=== PATIENT | female | born 1960 | race Caucasian/White ===

== ENCOUNTER 2020-09-09 21:21 | Observation (INO) ==
[2020-09-09] MEDS ORDERED: Aspirin 81 MG TAB.CHEW PO ONE (21:25)
[2020-09-09 21:43] LABS: Eosinophils % 1.6 %; Mean Platelet Volume 9.1 fL (9.4-12.4)
[2020-09-09 21:45] LABS: Basophils # 0.1 K/mcL (0.0-0.2); Basophils % 0.7 %; Eosinophils # 0.1 K/mcL (0.0-0.6); Hematocrit 31.1 % (35.3-44.9); Hemoglobin 8.1 g/dL (11.5-15.4); Immature Granulocytes % 0.1 % (0-4); Lymphocytes # 2.6 K/mcL (0.6-4.6); Lymphocytes % 38.5 %; Mean Corpuscular Hemoglobin 18.5 pg (28.0-33.3); Mean Corpuscular Volume 71.2 fL (83.0-100.0); Monocytes # 0.6 K/mcL (0.0-1.3); Monocytes % 8.6 %; Platelet Count 338 K/mcL (140-400); Red Blood Count 4.37 M/mcL (3.82-4.97); Red Cell Distribution Width 17.8 % (11.5-14.5); Segmented Neutrophils % 50.5 %; White Blood Count 6.8 K/mcL (4.3-11.1)
[2020-09-09 21:46] LABS: Hypochromasia Present (Not Present); Neutrophils # 3.4 K/mcL (1.6-8.9)
[2020-09-09 21:50] LABS: INR 1.1; Prothrombin Time 12.5 Seconds (9.4-12.1)
[2020-09-09] MEDS ORDERED: Nitroglycerin 0.4 MG TAB.SUBL SL PRN (22:02)
[2020-09-09 22:08] LABS: BUN/Creatinine Ratio 14 (6-26); Blood Urea Nitrogen 11 mg/dL (8-23); Calcium 9.9 mg/dL (8.6-10.3); Carbon Dioxide 26 mEq/L (23-29); Chloride 105 mEq/L (98-107); Glucose 212 mg/dL (70-105); Osmolality,Calculated 292 (280-300); Sodium 138 mEq/L (136-145); eGFR For African Americans > 60 (> 60); eGFR For Non-African Americans > 60 (> 60)
[2020-09-09 22:09] LABS: Troponin I < 0.03 ng/mL (< 0.04)
[2020-09-09] MEDS ORDERED: Dextrose Gel 15 GM/37.5 ML TUBE PO PRN ×2 (22:57)
[2020-09-09] MEDS ORDERED: *HR* Dextrose 50 % in Water (Vial) 50 ML VIAL IVP PRN (22:57)
[2020-09-09] MEDS ORDERED: D5% in Water 1,000 ML IVC PRN (22:57)
[2020-09-09] MEDS ORDERED: Insulin DETEMIR 100 UNIT/ML X5UNITS SQ SCH (23:00)
[2020-09-10] MEDS: Insulin LISPRO 300 UNITS/3 ML VIAL SQ SCH ×5 (00:17→20:55)
[2020-09-10] MEDS: Acetaminophen 325 MG TABLET PO PRN ×3 (00:22→19:40)
[2020-09-10 01:30] LABS: Hematocrit 29.3 % (35.3-44.9); Hemoglobin 7.6 g/dL (11.5-15.4); Mean Corpuscular HGB Conc 25.9 g/dL (31.6-35.5); Mean Corpuscular Hemoglobin 18.5 pg (28.0-33.3); Mean Corpuscular Volume 71.5 fL (83.0-100.0); Mean Platelet Volume 9.1 fL (9.4-12.4); Platelet Count 329 K/mcL (140-400); Red Cell Distribution Width 17.6 % (11.5-14.5); White Blood Count 7.6 K/mcL (4.3-11.1)
[2020-09-10 01:49] LABS: BUN/Creatinine Ratio 13 (6-26); Blood Urea Nitrogen 11 mg/dL (8-23); Calcium 9.5 mg/dL (8.6-10.3); Carbon Dioxide 25 mEq/L (23-29); Chloride 106 mEq/L (98-107); Glucose 282 mg/dL (70-105); Osmolality,Calculated 298 (280-300); Potassium 3.9 mEq/L (3.5-5.1); Sodium 139 mEq/L (136-145); eGFR For African Americans > 60 (> 60); eGFR For Non-African Americans > 60 (> 60)
[2020-09-10] MEDS: *HR* Enoxaparin 40 MG/0.4 ML SYRINGE SQ SCH (05:16)
[2020-09-10 05:53] LABS: % Iron Saturation 2 % (15-50); Iron 10 mcg/dL (50-170); Transferrin 306 mg/dL (203-362)
[2020-09-10 06:14] LABS: Ferritin < 8 ng/mL (10-120)
[2020-09-10] MEDS: Iron Sucrose Complex 250 MG in 0.9 % Sodium Chloride 250 ML IVPB SCH (08:32)
[2020-09-10] MEDS ORDERED: Perflutren Lipid Microsphere 1.3 ML in 0.9 % Sodium Chloride 8.7 ML IVP PRN (08:39)
[2020-09-10] MEDS ORDERED: Aspirin 81 MG TAB.CHEW PO SCH (09:00)
[2020-09-10] MEDS ORDERED: Nitroglycerin 0.4 MG TAB.SUBL SL PRN (10:15)
[2020-09-10] MEDS: Isosorbide MONOnitrate (24 HR) 30 MG TAB.ER.24H PO SCH (15:16)
[2020-09-10] MEDS: Insulin DETEMIR 100 UNIT/ML X5UNITS SQ SCH (20:56)
[2020-09-10] MEDS ORDERED: Insulin DETEMIR 100 UNIT/ML X5UNITS SQ SCH (21:00)
[2020-09-10] MEDS ORDERED: Ibuprofen 400 MG TABLET PO ONE (21:48)
[2020-09-11] MEDS: *HR* Enoxaparin 40 MG/0.4 ML SYRINGE SQ SCH (05:31)
[2020-09-11 06:27] LABS: Hematocrit 25.9 % (35.3-44.9); Hemoglobin 6.7 g/dL (11.5-15.4); Mean Corpuscular HGB Conc 25.9 g/dL (31.6-35.5); Mean Corpuscular Hemoglobin 18.7 pg (28.0-33.3); Mean Corpuscular Volume 72.1 fL (83.0-100.0); Mean Platelet Volume 9.3 fL (9.4-12.4); Platelet Count 278 K/mcL (140-400); Red Blood Count 3.59 M/mcL (3.82-4.97); Red Cell Distribution Width 17.8 % (11.5-14.5); White Blood Count 6.4 K/mcL (4.3-11.1)
[2020-09-11 06:43] LABS: BUN/Creatinine Ratio 13 (6-26); Blood Urea Nitrogen 11 mg/dL (8-23); Calcium 8.9 mg/dL (8.6-10.3); Carbon Dioxide 27 mEq/L (23-29); Chloride 108 mEq/L (98-107); Glucose 98 mg/dL (70-105); Osmolality,Calculated 289 (280-300); Potassium 3.9 mEq/L (3.5-5.1); Sodium 140 mEq/L (136-145); eGFR For African Americans > 60 (> 60); eGFR For Non-African Americans > 60 (> 60)
[2020-09-11 07:37] LABS: Estimated Average Glucose 163 mg/dl
[2020-09-11] MEDS ORDERED: 0.45 % Sodium Chloride w/KCl 20 MEQ/1,000 ML MLS IVC SCH (08:00)
[2020-09-11] MEDS: Insulin LISPRO 300 UNITS/3 ML VIAL SQ SCH ×4 (08:11→20:04)
[2020-09-11] MEDS: Iron Sucrose Complex 250 MG in 0.9 % Sodium Chloride 250 ML IVPB SCH (08:35)
[2020-09-11] MEDS: Isosorbide MONOnitrate (24 HR) 30 MG TAB.ER.24H PO SCH (08:36)
[2020-09-11] MEDS ORDERED: 0.9 % Sodium Chloride 250 ML ONE (10:00)
[2020-09-11] MEDS: Acetaminophen 325 MG TABLET PO PRN (11:46)
[2020-09-11 16:09] LABS: Hemoglobin 7.8 g/dL (11.5-15.4)
[2020-09-11] MEDS: Pantoprazole 40 MG VIAL IVP SCH (16:19)
[2020-09-11] MEDS: Ondansetron ODT 4 MG TAB.RAPDIS SL PRN (16:27)
[2020-09-11] MEDS: Insulin DETEMIR 100 UNIT/ML X5UNITS SQ SCH (20:01)
[2020-09-12 00:46] LABS: Hematocrit 30.2 % (35.3-44.9); Hemoglobin 8.1 g/dL (11.5-15.4)
[2020-09-12] MEDS: Pantoprazole 40 MG VIAL IVP SCH ×2 (05:18→17:24)
[2020-09-12 07:59] LABS: Hematocrit 33.2 % (35.3-44.9); Hemoglobin 8.9 g/dL (11.5-15.4)
[2020-09-12 08:15] LABS: Hematocrit 30.8 % (35.3-44.9); Red Cell Distribution Width 18.9 % (11.5-14.5); Segmented Neutrophils % 52.3 %
[2020-09-12 08:16] LABS: Basophils # 0.1 K/mcL (0.0-0.2); Basophils % 0.7 %; Eosinophils # 0.2 K/mcL (0.0-0.6); Eosinophils % 2.4 %; Hemoglobin 8.3 g/dL (11.5-15.4); Immature Granulocytes % 1.2 % (0-4); Lymphocytes # 2.4 K/mcL (0.6-4.6); Lymphocytes % 35.1 %; Mean Corpuscular HGB Conc 26.9 g/dL (31.6-35.5); Mean Corpuscular Hemoglobin 20.1 pg (28.0-33.3); Mean Corpuscular Volume 74.6 fL (83.0-100.0); Mean Platelet Volume 9.2 fL (9.4-12.4); Monocytes # 0.6 K/mcL (0.0-1.3); Monocytes % 8.3 %; Nucleated Red Blood Cells 0.3 /100 WBC (0); Platelet Count 265 K/mcL (140-400); Red Blood Count 4.13 M/mcL (3.82-4.97); White Blood Count 6.8 K/mcL (4.3-11.1)
[2020-09-12 08:17] LABS: Neutrophils # 3.6 K/mcL (1.6-8.9)
[2020-09-12] MEDS: Insulin LISPRO 300 UNITS/3 ML VIAL SQ SCH ×4 (08:18→21:24)
[2020-09-12 08:30] LABS: BUN/Creatinine Ratio 6 (6-26); Blood Urea Nitrogen 5 mg/dL (8-23); Calcium 8.9 mg/dL (8.6-10.3); Carbon Dioxide 26 mEq/L (23-29); Chloride 107 mEq/L (98-107); Glucose 200 mg/dL (70-105); Osmolality,Calculated 289 (280-300); Potassium 3.8 mEq/L (3.5-5.1); Sodium 138 mEq/L (136-145); eGFR For African Americans > 60 (> 60); eGFR For Non-African Americans > 60 (> 60)
[2020-09-12 08:43] LABS: Hypochromasia Present (Not Present)
[2020-09-12 08:44] LABS: Anisocytosis 1+ (Not Present); Macrocytosis Present (Not Present); Platelet Estimate Normal (Normal)
[2020-09-12] MEDS: Ondansetron ODT 4 MG TAB.RAPDIS SL PRN (08:56)
[2020-09-12] MEDS: Isosorbide MONOnitrate (24 HR) 30 MG TAB.ER.24H PO SCH (08:57)
[2020-09-12] MEDS: Iron Sucrose Complex 250 MG in 0.9 % Sodium Chloride 250 ML IVPB SCH (08:58)
[2020-09-12] MEDS ORDERED: *HR* Propofol 200 MG/20 ML VIAL IVP ONE (15:25)
[2020-09-12] MEDS ORDERED: Lidocaine -MPF 2% 2 ML VIAL ONE (15:26)
[2020-09-12 17:39] LABS: Hematocrit 31.2 % (35.3-44.9); Hemoglobin 8.2 g/dL (11.5-15.4)
[2020-09-12] MEDS: Insulin DETEMIR 100 UNIT/ML X5UNITS SQ SCH (21:31)
[2020-09-13 01:37] LABS: Hemoglobin 7.7 g/dL (11.5-15.4); Mean Platelet Volume 9.3 fL (9.4-12.4)
[2020-09-13 01:39] LABS: Basophils # 0.1 K/mcL (0.0-0.2); Basophils % 0.7 %; Eosinophils # 0.1 K/mcL (0.0-0.6); Eosinophils % 1.8 %; Hematocrit 28.8 % (35.3-44.9); Immature Granulocytes % 0.7 % (0-4); Lymphocytes % 28.8 %; Mean Corpuscular HGB Conc 26.7 g/dL (31.6-35.5); Mean Corpuscular Hemoglobin 19.8 pg (28.0-33.3); Mean Corpuscular Volume 74.2 fL (83.0-100.0); Monocytes # 0.7 K/mcL (0.0-1.3); Monocytes % 9.3 %; Neutrophils # 4.2 K/mcL (1.6-8.9); Nucleated Red Blood Cells 0.4 /100 WBC (0); Platelet Count 252 K/mcL (140-400); Red Blood Count 3.88 M/mcL (3.82-4.97); Red Cell Distribution Width 19.5 % (11.5-14.5); Segmented Neutrophils % 58.7 %; White Blood Count 7.1 K/mcL (4.3-11.1)
[2020-09-13 01:56] LABS: BUN/Creatinine Ratio 9 (6-26); Blood Urea Nitrogen 8 mg/dL (8-23); Calcium 8.5 mg/dL (8.6-10.3); Carbon Dioxide 25 mEq/L (23-29); Chloride 108 mEq/L (98-107); Glucose 186 mg/dL (70-105); Osmolality,Calculated 291 (280-300); Potassium 3.9 mEq/L (3.5-5.1); Sodium 139 mEq/L (136-145); eGFR For African Americans > 60 (> 60); eGFR For Non-African Americans > 60 (> 60)
[2020-09-13 02:24] LABS: Anisocytosis 1+ (Not Present); Hypochromasia Present (Not Present); Platelet Estimate Normal (Normal); Poikilocytosis 1+ (Not Present); Polychromasia 2+ (Not Present)
[2020-09-13] MEDS: Pantoprazole 40 MG VIAL IVP SCH (05:48)
[2020-09-13] MEDS: Isosorbide MONOnitrate (24 HR) 30 MG TAB.ER.24H PO SCH (07:25)
[2020-09-13] MEDS: Insulin LISPRO 300 UNITS/3 ML VIAL SQ SCH ×2 (07:27→11:44)
[2020-09-13 10:09] VITALS: BP 151/72
[2020-09-13 13:45] LABS: Hematocrit 33.8 % (35.3-44.9); Hemoglobin 9.1 g/dL (11.5-15.4)
[2020-09-14] MEDS ORDERED: Pantoprazole 40 MG VIAL IVP SCH (09:00)
== END 2020-09-13 15:05 | disposition home or self-care (01) ==
LOC: 3BNU 21:21 → EMEROOARM 21:21 → 3BNU 23:39
PROVIDERS: ADMIT Internal Medicine; ATTEND Internal Medicine
PROC: ENDOEBX (2020-09-12 14:00)